=== PATIENT | male | born 1935 | race Caucasian/White ===

== ENCOUNTER 2023-05-03 11:37 | Emergency (ER) | payer BC ==
[2023-05-03 11:54] VITALS: BMI 30.2
[2023-05-03] MEDS ORDERED: IBUPROFEN 600 MG TABLET (FP) PO ONE (12:10)
[2023-05-03] MEDS ORDERED: ACETAMINOPHEN 325 MG TABLET (FP) PO ONE (12:10)
[2023-05-03] MEDS ORDERED: ALBUTEROL SO4 2.5/IPRATROPIUM 0.5 INH SOL 3 ML VIAL.NEB. NEB ONE ×2 (12:37→14:24)
[2023-05-03] MEDS ORDERED: DEXTROSE 5%-0.45% SALINE 1,000 ML IV SCH (12:45)
[2023-05-03 13:27] LABS: VENOUS BASE EXCESS 2.6 mmol/L (-2-2); VENOUS O2 SATURATION 39.4 % (70-80); VENOUS PH 7.343 (7.310-7.410)
[2023-05-03 13:29] LABS: BASO % 0.8 % (0-2.0); EOS % 2.6 % (0-4.5); HEMATOCRIT 36.5 % (35.4-49); HEMOGLOBIN 12.2 GM/dL (11.7-16.9); LYMPH % 23.1 % (8-40); MCH 30.7 pg (25.7-33.7); MCHC 33.5 g/dl (32.0-35.9); MEAN CELL VOLUME 91.6 fl (80-96); MEAN PLT VOLUME 8.7 fl (7.5-11.1); MONO % 12.2 % (3.8-10.2); NEUT % 61.3 % (42.8-82.8); PLATELET COUNT 198 10^3/uL (134-434); RBC 3.99 M/mm3 (4.00-5.60); RDW 15.9 % (11.9-15.9); WHITE BLOOD COUNT 9.8 K/mm3 (4.0-10.0)
[2023-05-03 13:52] LABS: POTASSIUM 5.2 mmol/L (3.5-5.1)
[2023-05-03 13:55] LABS: CALCIUM 8.9 mg/dL (8.5-10.1)
[2023-05-03 13:56] LABS: ALBUMIN 3.4 g/dl (3.4-5.0); BLOOD UREA NITROGEN 32.5 mg/dL (7-18)
[2023-05-03 13:59] LABS: BILIRUBIN,TOTAL 1.4 mg/dL (0.2-1); CREATININE 1.7 mg/dL (0.55-1.3); TOT PROT 7.8 g/dl (6.4-8.2)
[2023-05-03 14:04] LABS: N-TERMINAL BNP 5767.7 pg/ml (5-450)
[2023-05-03 14:52] LABS: EPI CELLS 4 /uL (0-25.1); HYALINE CASTS 0 /uL (0-3.1); PH,URINE 5.5 (5.0-8.0); URINE APPEARANCE CLEAR; URINE BACTERIA 2 /uL (0-1359); URINE BILIRUBIN NEGATIVE (NEGATIVE); URINE COLOR YELLOW; URINE GLUCOSE (UA) NEGATIVE (NEGATIVE); URINE KETONE NEGATIVE (NEGATIVE); URINE LEUK ESTERASE NEGATIVE (NEGATIVE); URINE NITRITE NEGATIVE (NEGATIVE); URINE PROTEIN 1+ (NEGATIVE); URINE RBC 15 /uL (0-23.9); URINE UROBILINOGEN 0.2 mg/dL (0.2-1.0); URINE WBC 8 /uL (0-25.8)
[2023-05-03] MEDS ORDERED: levETIRAcetam 500 MG/5 ML INJECTION VIAL IVPB ONE ×2 (15:08→15:26)
[2023-05-03] MEDS ORDERED: DEXAMETHASONE SOD PHOSPHATE 10 MG/1 ML VIAL IVPUSH ONE (15:08)
[2023-05-03] MEDS ORDERED: DEXAMETHASONE SOD PHOSPHATE 10 MG/1 ML VIAL ONE (15:26)
[2023-05-03 15:49] LABS: POTASSIUM 3.8 mmol/L (3.5-5.1)
[2023-05-03 15:51] VITALS: RESP 18; TEMP 98
[2023-05-03 15:52] LABS: ALBUMIN 3.4 g/dl (3.4-5.0); BLOOD UREA NITROGEN 34.3 mg/dL (7-18)
[2023-05-03 15:55] LABS: CREATININE 1.6 mg/dL (0.55-1.3)
[2023-05-03 15:56] LABS: BILIRUBIN,TOTAL 1.2 mg/dL (0.2-1)
[2023-05-03 15:57] LABS: TOT PROT 7.3 g/dl (6.4-8.2)
[2023-05-03 16:25] VITALS: BP 133/48; PULSE 71
== END 2023-05-03 16:50 | disposition short-term general hospital (02) ==
LOC: JER 11:37
PROC: 3E033GC Introduction of Other Therapeutic Substance into Peripheral Vein, Percutaneous Approach (ICD-10-PCS; principal; 2023-05-03)
PROC: 3E033GC Introduction of Other Therapeutic Substance into Peripheral Vein, Percutaneous Approach (ICD-10-PCS; 2023-05-03)
PROC: 3E033GC Introduction of Other Therapeutic Substance into Peripheral Vein, Percutaneous Approach (ICD-10-PCS; 2023-05-03)
PROC: 3E0F7GC Introduction of Other Therapeutic Substance into Respiratory Tract, Via Natural or Artificial Opening (ICD-10-PCS; 2023-05-03)
DX: R41.82 Altered mental status, unspecified (principal); G93.89 Other specified disorders of brain; R06.2 Wheezing; Z20.822 Contact with and (suspected) exposure to COVID-19
CPT/HCPCS: 0241U-QW; 36415; 70450-TC; 71045-TC-FY; 80053; 81003; 82803; 83605; 83690; 83880; 84443; 84484; 85025; 87086; 93005; 93010; 99285-25; J1100